=== PATIENT | female | born 1955 | race Caucasian/White ===

== ENCOUNTER 2023-07-16 10:35 | Emergency (ER) | payer BC, OTHER ==
[~2023-07-16] VITALS: Ht 162.6 cm; Wt 72.0 kg
[2023-07-16 11:24] VITALS: O2SAT 100
[2023-07-16] MEDS ORDERED: ACETAMINOPHEN 650MG/20.3ML UDC PO NR (12:44)
[2023-07-16] MEDS ORDERED: AMLODIPINE 5MG TABLET PO NR (12:44)
[2023-07-16] MEDS ORDERED: LOPERAMIDE HCL 2MG CAPSULE PO NR (12:44)
[2023-07-16 14:20] LABS: EOSINOPHILS % 1.6 % (0.0-5.0); HEMATOCRIT. 40.7 % (36.0-48.0); HEMOGLOBIN. 13.5 g/dL (12.0-16.0); LYMPHOCYTES % 29.8 % (20.0-50.0); MEAN CORPUSCULAR HEMOGLOBIN 29.4 pg (28.0-32.0); MEAN CORPUSCULAR HGB CONC 33.3 g/dL (31.0-37.0); MEAN CORPUSCULAR VOLUME 88.3 fL (81.0-99.0); MEAN PLATELET VOLUME 8.4 fl (7.4-10.4); MONOCYTES % 6.8 % (2.0-8.0); NEUTROPHILS % 60.8 % (40.0-76.0); PLATELET 256 x1000/uL (130-400); RED CELL DISTRIBUTION WIDTH 14.6 % (11.6-14.6); WHITE BLOOD COUNT 6.8 x1000/uL (4.5-11.0)
[2023-07-16 14:28] LABS: PROTHROMBIN TIME 10.6 sec (9.6-11.0)
[2023-07-16 14:30] LABS: CHLORIDE 109 mEq/L (98-107); INDEX HEMOLYSI 1 (1-3); INDEX ICTERIC 1 (1-4); INDEX LIPEMIC 1 (1-3); POTASSIUM 4.1 mEq/L (3.5-5.1); SODIUM 138 mEq/L (136-145)
[2023-07-16] MEDS ORDERED: TOPUD PO (14:41)
[2023-07-16 14:53] LABS: ALANINE AMINOTRANSFERASE 20 IU/L (13-61); ALBUMIN 3.6 g/dL (3.4-5.0); ASPARTATE AMINOTRANSFERASE 17 IU/L (15-37); BILIRUBIN TOTAL 0.4 mg/dL (0.1-1.0); CALCIUM 8.7 mg/dL (8.5-10.1); CARBON DIOXIDE 26 mEq/L (21-32); CREATININE 0.6 mg/dL (0.6-1.3); GLUCOSE 94 mg/dL (70-105); PROTEIN TOTAL 7.3 g/dL (6.0-8.3); UREA NITROGEN BLOOD 12 mg/dL (7-21)
[2023-07-16 15:50] LABS: TROPONIN I HIGH SENSITIVITY 5 ng/L (<54)
[2023-07-16 16:30] VITALS: BP 113/60; PULSE 54; RESP 17; TEMP 98.2
== END 2023-07-16 20:13 | disposition home or self-care (01) ==
LOC: ER 11:05
DX: I10 Essential (primary) hypertension (principal); R10.9 Unspecified abdominal pain; R51.9 Headache, unspecified; E78.00 Pure hypercholesterolemia, unspecified
CPT/HCPCS: 36415; 74176; 80053; 84484; 85025; 93005; 99284